=== PATIENT | male | born 1965 | race Caucasian/White ===

== ENCOUNTER → 2016-11-21 | Day surgery (SDC) | payer OTHER ==
[~2016-11-21] VITALS: Ht 165.1 cm; Wt 116.1 kg
[~2016-11-21] MED LIST: ANTIVERT 25 MG25 MG PO; CRESTOR 5MG5 MG PO; CYCLOBENZAPRINE5 M2 PO; DEPO-TESTADIOL10 ML IM; FISH OIL CONC1000 MG PO; HYDRODIURIL 112.5 M1 PO; JANUMET 1000 MG1 TAB PO; JARDIANCE10 M1 PO; LANTUS SOL100 UNIT/1 SC; LIPOFEN150 MG PO; LISINOPRIL40 MG PO; MULTIVITAMIN1 TAB PO; NOVOLOG100 U/ML SC; OMEPRAZOLE D/R20 MG PO; VITAMIN D32000 I1 PO
--- NOTE | 2016-11-21 11:48 | Operative Report ---
Operative/Inv Procedure Report Surgery Date: 11/21/16 Name of Procedure: Release right carpal tunnel Pre-Operative Diagnosis: Carpal tunnel syndrome right Post-Operative Diagnosis: Same Estimated Blood Loss: scant Surgeon/Supervisor Mails: LIZZETTE PIERCE MD Anesthesia: moderate sedation Operative/Procedure Note Note: Patient was counseled regards to the procedure the alternatives the risks and expected outcomes as relates to his request for surgical intervention to treat symptomatic right-sided carpal tunnel syndrome. No guarantees were given in regards to recovery. We discussed the small but present risk of injury to the nerve possibly of a permanent nature open wound pain and numbness in the palmar fingertips. Once agreed to informed taken to the operative placed supine on the table intravenous sedation antibiotic securing the right hand was prepped and draped in usual sterile fashion. Tourniquet was placed on the midforearm. Longitudinal palmar incision was deepened through the skin and subcutaneous tissue and palmar fascia. Transverse carpal ligament was identified under direct vision and completely divided. 4-0 nylon splint.
== END ==
LOC: STS 03:58
DX: G56.01 Carpal tunnel syndrome, right upper limb (principal); E11.9 Type 2 diabetes mellitus without complications; Z79.4 Long term (current) use of insulin; I10 Essential (primary) hypertension; K21.9 Gastro-esophageal reflux disease without esophagitis
CPT/HCPCS: J0690; J2250